=== PATIENT | male | born 1950 | race African-American/Black ===

== ENCOUNTER 2018-02-26 06:02 | Day surgery (SDC) | payer OTHER ==
[2018-02-26] MEDS ORDERED: Ringers Lactate 1,000 ML IV ONE (07:25)
[2018-02-26] MEDS ORDERED: LIDOCAINE 2% MPF 5 ML VIAL ONE (08:02)
[2018-02-26] MEDS ORDERED: PROPOFOL 200 MG/20 ML VIAL IV ONE (08:57)
--- NOTE | 2018-02-26 09:12 | ENDO RPT ---
[address], [address] COLONOSCOPY PROCEDURE REPORT EXAM DATE: 02/26/2018 PATIENT NAME: Andrew Soriano MR #: [id number] BIRTHDATE: 1950 ATTENDING: Deandre Mcdonald Dr STATUS: outpatient [employer] TEACHER: Kita Ro and Yvette Sheikh RN INDICATIONS: The patient is a 67 yr old Male here for a colonoscopy due to colon cancer screening PROCEDURE PERFORMED: Colonoscopy MEDICATIONS: Per Anesthesia. ESTIMATED BLOOD LOSS: None CONSENT: The patient understands the risks and benefits of the procedure and understands that these risks include, but are not limited to: sedation, allergic reaction, infection, perforation and/or bleeding. Alternative means of evaluation and treatment include, among others: physical exam, x-rays, and/or surgical intervention. The patient elects to proceed with this endoscopic procedure. DESCRIPTION OF PROCEDURE: During intra-op preparation period all mechanical medical equipment was checked for proper function. Hand hygiene and appropriate measures for infection prevention was taken. Procedure, possible complications, alternatives including, but not limited to possibility of bleeding, perforation, tear, infection, sepsis, need for surgery, need for blood transfusion, were explained to the patient. After the risks, benefits and alternatives of the procedure were thoroughly explained, Informed consent was verified, confirmed and timeout was successfully executed by the treatment team. The patient was placed in the left lateral position. A digital rectal exam was performed and revealed an enlarged prostate. After appropriate level of anesthesia, the scope was passed. The EC-[id number] ([id number]) endoscope was introduced through the anus and advanced to the terminal ileum which was intubated for a short distance. The quality of the prep was good. The instrument was then slowly withdrawn as the colon was fully examined. Scope withdrawal time was 8 minutes. COLON FINDINGS: Mild diverticulosis was noted throughout the entire examined colon. Moderate sized internal hemorrhoids were found. Retroflexed views revealed medium hemorrhoids. The scope was then completely withdrawn from the patient and the procedure terminated. ADVERSE EVENTS: There were no complications. IMPRESSIONS: 1. Mild diverticulosis throughout the entire examined colon 2. Moderate sized internal hemorrhoids 3. Intubation to terminal ileum RECOMMENDATIONS: 1. yearly hemoccult starting in 4 years 2. fiber rich diet RECALL: Return in 10 year(s) for Colonoscopy. Deandre Mcdonald Dr eSigned: Deandre Mcdonald Dr 02/26/2018 9:11 AM cc: Darren Frias and Tej Davis CPT CODES: ICD9 CODES: PATIENT NAME: Andrew Soriano MR#: [id number]
== END 2018-02-26 09:44 | disposition home or self-care (01) ==
LOC: OR 06:02
PROVIDERS: ATTEND Internal Medicine Gastroenterology
PROC: 0DJD8ZZ Inspection of Lower Intestinal Tract, Via Natural or Artificial Opening Endoscopic (ICD-10-PCS; principal; 2018-02-26 09:00)
DX: Z12.11 Encounter for screening for malignant neoplasm of colon (principal); K57.90 Diverticulosis of intestine, part unspecified, without perforation or abscess without bleeding; K64.8 Other hemorrhoids; J44.9 Chronic obstructive pulmonary disease, unspecified; M19.90 Unspecified osteoarthritis, unspecified site; J45.909 Unspecified asthma, uncomplicated; F17.200 Nicotine dependence, unspecified, uncomplicated; Z91.013 Allergy to seafood; Z83.3 Family history of diabetes mellitus; Z82.49 Family history of ischemic heart disease and other diseases of the circulatory system

== ENCOUNTER 2019-01-17 15:57 | Emergency (ER) | payer OTHER ==
--- NOTE | 2019-01-17 16:53 | EDPHYS ---
Physician Documentation [facility] Name: Andrew Soriano Age: 68 yrs Sex: Male : 1950 Arrival Date: 01/17/2019 Time: 15:58 Bed 11 Private MD: Tej Davis ED Physician Alec Steele HPI: 01/17 16:33 This 68 yrs old Black Male presents to ER via Wheelchair with complaints of High Blood jmm Pressure. 16:33 The patient has elevated blood pressure and discovered this dentist. Modifying factors: jmm The symptoms are aggravated by The symptoms are alleviated by. This is a 68 year old male with a history of copd, asthma, prostate cancer that presents to the ED with elevated blood pressure. Systolic was over 200 at dentist office. Patient states he was in pain. Patient denies chest pain, headache or shortness of breath. . Historical: - Allergies: 16:24 No Known Allergies; iw - Home Meds: 16:24 amlodipine oral [Active]; Flovent HFA inhalation inhalation [Active]; iw - PMHx: 16:24 COPD; prostate cancer; Asthma; iw - Immunization history:: Adult Immunizations up to date. - Social history:: Smoking status: Patient uses tobacco products, Smoking status: Patient uses tobacco products, smokes one-half pack cigarettes per day. - Ebola Screening: : Patient negative for fever greater than or equal to 101.5 degrees Fahrenheit, and additional compatible Ebola Virus Disease symptoms Patient denies exposure to infectious person Patient denies travel to an Ebola-affected area in the 21 days before illness onset No symptoms or risks identified at this time. ROS: 16:33 Constitutional: Negative for fever, chills, and weight loss, Cardiovascular: Negative jmm for chest pain, palpitations, and edema, Respiratory: Negative for shortness of breath, cough, wheezing, and pleuritic chest pain, Neuro: Negative for headache, weakness, numbness, tingling, and seizure. 16:33 ENT: Positive for dental pain. 16:33 All other systems are negative. Exam: 16:33 Constitutional: This is a well developed, well nourished patient who is awake, alert, jmm and in no acute distress. Head/Face: atraumatic. Eyes: EOMI, no conjunctival erythema appreciated ENT: Moist Mucus Membranes Neck: Trachea midline, Supple Chest/axilla: Normal chest wall appearance and motion. Cardiovascular: Regular rate and rhythm. No edema appreciated 16:33 Abdomen/GI: Non distended, soft Back: Normal ROM Skin: General appearance color normal MS/ Extremity: Moves all extremities, no obvious deformities appreciated, no edema noted to the lower extremities Neuro: Awake and alert, normal gait Psych: Behavior is normal, Mood is normal, Patient is cooperative and pleasant 16:33 Respiratory: the patient does not display signs of respiratory distress, Respirations: normal, Breath sounds: wheezing: that is mild, is scattered. Vital Signs: 16:21 BP 158 / 87; Pulse 86; Resp 16; Temp 98.2; Pulse Ox 100% on R/A; Weight 84.37 kg; iw Height 5 ft. 9 in. (175.26 cm); Pain 0/10; 16:21 Body Mass Index 27.47 (84.37 kg, 175.26 cm) iw MDM: 16:28 Patient medically screened. vinay 16:52 Data reviewed: vital signs, nurses notes. Refusal of service: The patient/guardian mesha displays adequate decision making capability and despite a detailed discussion of alternatives, benefits, risks, and consequences refuses: all lab tests. ED course: Patient signed out against medical advice. . Administered Medications: No medications were administered Disposition: 01/17/19 16:53 Patient has left against medical advice. Impression: Elevated Blood Pressure. - Patients states they are going to Home. - Condition is Stable. Follow up: Private Physician; When: 1 - 2 days; Reason: Recheck today's complaints, Continuance of care, Re-evaluation by your physician. - Problem is new. - Symptoms have improved. Addendum: 01/19/2019 08:15 Co-signature as Attending Physician, Alec Steele MD I agree with the assessment and c rooney plan of care. Signatures: Dispatcher [employer] EDAlec Lovett MD MD cha Mickail, Joel, PA PA jmm Williams, Irene, LAURIE RN iw Corrections: (The following items were deleted from the chart) 01/17 16:54 16:31 IV Saline Lock ordered. mesha iw 16:54 16:53 01/17/2019 16:53 Patients has left against medical advice. Impression: Elevated iw Blood Pressure. Patient states they are going to Home. Condition is Stable. Follow up: Private Physician; When: 1 - 2 days; Reason: Recheck today's complaints, Continuance of care, Re-evaluation by your physician. Problem is new. Symptoms have improved. mesha
--- NOTE | 2019-01-17 16:53 | ER ---
Nurse's Notes [facility] Name: Andrew Soriano Age: 68 yrs Sex: Male : 1950 Arrival Date: 01/17/2019 Time: 15:58 Bed 11 Private MD: Tej Davis Diagnosis: Elevated Blood Pressure Presentation: 01/17 16:19 Presenting complaint: Patient states: went to dentist for toothache, had BP taken and iw it was over 200, was told to come to ER for evaluation, pt takes amlodipine for BP, has been in a lot of pain from toothache, denies headache, dizziness or blurry vision. Transition of care: patient was not received from another setting of care. Onset of symptoms was January 17, 2019. Risk Assessment: Do you want to hurt yourself or someone else? Patient reports no desire to harm self or others. Initial Sepsis Screen: Does the patient meet any 2 criteria? No. Patient's initial sepsis screen is negative. Does the patient have a suspected source of infection? No. Patient's initial sepsis screen is negative. Care prior to arrival: None. 16:19 Method Of Arrival: Wheelchair iw 16:19 Acuity: CHRIS 4 iw Historical: - Allergies: 16:24 No Known Allergies; iw - Home Meds: 16:24 amlodipine oral [Active]; Flovent HFA inhalation inhalation [Active]; iw - PMHx: 16:24 COPD; prostate cancer; Asthma; iw - Immunization history:: Adult Immunizations up to date. - Social history:: Smoking status: Patient uses tobacco products, Smoking status: Patient uses tobacco products, smokes one-half pack cigarettes per day. - Ebola Screening: : Patient negative for fever greater than or equal to 101.5 degrees Fahrenheit, and additional compatible Ebola Virus Disease symptoms Patient denies exposure to infectious person Patient denies travel to an Ebola-affected area in the 21 days before illness onset No symptoms or risks identified at this time. Assessment: 16:20 General: Appears in no apparent distress. Behavior is calm, cooperative. Pain: Denies iw pain. Neuro: Level of Consciousness is awake, alert, obeys commands, Oriented to person, place, time, situation. Respiratory: Respiratory effort is even, unlabored, Respiratory pattern is regular. 16:50 Reassessment: pt refuses lab draw, pt states he wants to go home since his BP has iw improved, states he has antibiotics for his tooth and he has BP medicine at home. Vital Signs: 16:21 BP 158 / 87; Pulse 86; Resp 16; Temp 98.2; Pulse Ox 100% on R/A; Weight 84.37 kg; iw Height 5 ft. 9 in. (175.26 cm); Pain 0/10; 16:21 Body Mass Index 27.47 (84.37 kg, 175.26 cm) iw ED Course: 15:58 Patient arrived in ED. as 15:58 Tej Davis DO is Private Physician. as 16:21 Triage completed. iw 16:24 Arm band placed on. iw 16:28 Leisa Henry, RN is Primary Nurse. iw 16:28 Dominick Floyd PA is PHCP. mesha 16:28 Alec Steele MD is Attending Physician. mesha Administered Medications: No medications were administered Outcome: 16:53 AMA AMA form signed iw 16:53 Condition: good 16:54 Patient left the ED. iw Signatures: Dominick Floyd PA PA Chelsey Goddard as Leisa Henry, RN RN iw
== END 2019-01-17 16:54 | disposition left against medical advice (07) ==
LOC: ER 15:57
DX: I10 Essential (primary) hypertension (principal); J45.909 Unspecified asthma, uncomplicated; J44.9 Chronic obstructive pulmonary disease, unspecified; F17.210 Nicotine dependence, cigarettes, uncomplicated; Z85.46 Personal history of malignant neoplasm of prostate; Z72.0 Tobacco use
CPT/HCPCS: 99281